=== PATIENT | male | born 1960 | race Caucasian/White ===

== ENCOUNTER 2018-11-24 11:30 | Emergency (ER) | payer OTHER ==
[2018-11-24 11:47] VITALS: BP 108/76
[2018-11-24] MEDS ORDERED: SODIUM CHLORIDE 0.9% 1,000 ML IV ONE ×2 (12:48→14:17)
[2018-11-24 13:12] LABS: BASOPHILS # (AUTO) 0.1 10^3/uL (0.0-0.1); BASOPHILS % (AUTO) 0.9 %; EOSINOPHILS # (AUTO) 0.3 10^3/uL (0.0-0.7); EOSINOPHILS % (AUTO) 3.4 %; HGB - HEMOGLOBIN 15.3 g/dL (14.0-18.0); LYMPHOCYTES # (AUTO) 3.6 10^3/uL (1.5-3.5); LYMPHOCYTES % (AUTO) 47.7 %; MEAN CORPUSCULAR HEMOGLOBIN 31.8 pg (27.0-31.0); MEAN CORPUSCULAR HGB CONC 36.7 g/dL (32.0-36.0); MEAN CORPUSCULAR VOLUME 86.7 fL (80.0-94.0); MEAN PLATELET VOLUME 9.9 fL (7.4-11.4); MONOCYTES # (AUTO) 0.4 10^3/uL (0.0-1.0); MONOCYTES % (AUTO) 5.2 %; NEUTROPHILS # (AUTO) 3.2 10^3/uL (1.5-6.6); NEUTROPHILS % (AUTO) 42.7 %; PLT - PLATELET COUNT 233 10^3/uL (130-450); RED BLOOD COUNT 4.81 10^6/uL (4.70-6.10); RED CELL DISTRIBUTION WIDTH 11.7 % (12.0-15.0); WHITE BLOOD COUNT 7.4 x10^3/uL (4.8-10.8)
[2018-11-24 13:13] LABS: VBG PH 7.416 (7.31-7.41)
[2018-11-24 13:14] LABS: VBG BASE EXCESS 0.8 mmol/L (-2 - +2); VBG PCO2 40.3 mmHg (41-51); VBG PO2 48.8 mmHg (25-47); VBG TOTAL CO2 26.6 mmol/L (24-29)
--- NOTE | 2018-11-24 13:14 | ED Physician Documentation ---
History of Present Illness - Stated complaint Stated Complaint: ELEVATED SUGAR - Chief complaint Chief Complaint: General - History obtained from History obtained from: Patient - History of Present Illness Timing: How many weeks ago (several) - Additonal information Additional information: The patient is a 58-year-old male who has had polyuria and polydipsia for the past 3 weeks or so. He was seen at the [facility] this morning and was noted to have high blood sugar. He was sent here for further evaluation and treatment. He does not have a history of diabetes. He denies abdominal pain, nausea or vomiting. He denies shortness of breath. He denies history of similar symptoms in the past. Review of Systems Constitutional: denies: Fever Eyes: denies: Irritation Nose: denies: Congestion Throat: denies: Sore throat Cardiac: denies: Chest pain / pressure Respiratory: denies: Dyspnea, Cough GI: denies: Abdominal Pain, Nausea, Vomiting : denies: Dysuria Skin: denies: Rash Musculoskeletal: denies: Back pain Neurologic: denies: Headache Endocrine: reports: Polydypsia, Polyuria PD PAST MEDICAL HISTORY - Past Medical History Cardiovascular: Hypertension Respiratory: None Endocrine/Autoimmune: None GI: GERD - Present Medications Home Medications: Ambulatory Orders Medication Instructions Recorded Confirmed Lisinopril/Hydrochlorothiazide 1 PO 11/24/18 [Lisinopril-Hctz 10-12.5 mg Tab] Omeprazole Magnesium [Prilosec] 10 mg PO 11/24/18 metFORMIN [Glucophage] 500 mg PO BIDWM #30 tablet 11/24/18 - Allergies Allergies/Adverse Reactions: Allergies Allergy/AdvReac Type Severity Reaction Status Date / Time No Known Drug Allergies Allergy Verified 11/24/18 11:47 - Social History Does the pt smoke?: No PD ED PE NORMAL - Vitals Vital signs reviewed: Yes (normal) - General General: Alert and oriented X 3, Well developed/nourished - HEENT HEENT: Atraumatic, Pharynx benign - Neck Neck: Supple, no meningeal sign, No adenopathy - Cardiac Cardiac: RRR - Respiratory Respiratory: No respiratory distress, Clear bilaterally - Abdomen Abdomen: Normal bowel sounds, Soft, Non tender - Back Back: No CVA TTP - Derm Derm: No rash - Extremities Extremities: No edema, No calf tenderness / cord - Neuro Neuro: Alert and oriented X 3, No motor deficit, Normal speech Results - Vitals Vitals: Vital Signs - 24 hr 11/24/18 15:50 Heart Rate 71 Respiratory 19 Rate O2 Saturation 99 Oxygen O2 Source Room air - Labs Labs: Laboratory Tests 11/24/18 11/24/18 11/24/18 11:46 13:01 13:01 WBC 7.4 RBC 4.81 Hgb 15.3 Hct 41.7 L MCV 86.7 MCH 31.8 H MCHC 36.7 H RDW 11.7 L Plt Count 233 MPV 9.9 Neut # (Auto) 3.2 Lymph # (Auto) 3.6 H Morrow # (Auto) 0.4 Eos # (Auto) 0.3 Baso # (Auto) 0.1 Absolute Nucleated RBC 0.00 Nucleated RBC % 0.0 VBG pH VBG pCO2 VBG pO2 VBG HCO3 VBG Total CO2 VBG O2 Saturation VBG Base Excess Sodium 132 L Potassium 4.3 Chloride 93 L Carbon Dioxide 27 Anion Gap 12.0 BUN 14 Creatinine 0.7 Estimated GFR (MDRD) 116 Glucose 400 H POC Whole Bld Glucose 448 H Glycated Hemoglobin Estim Average Glucose Calcium 9.5 Total Bilirubin 1.5 H AST 35 ALT 44 Alkaline Phosphatase 57 Total Protein 8.1 Albumin 4.7 Globulin 3.4 Albumin/Globulin Ratio 1.4 Lipase 39 Serum Ketones NEGATIVE 11/24/18 11/24/18 11/24/18 13:01 13:01 14:31 WBC RBC Hgb Hct MCV MCH MCHC RDW Plt Count MPV Neut # (Auto) Lymph # (Auto) Morrow # (Auto) Eos # (Auto) Baso # (Auto) Absolute Nucleated RBC Nucleated RBC % VBG pH 7.416 H VBG pCO2 40.3 L VBG pO2 48.8 H VBG HCO3 25.3 VBG Total CO2 26.6 VBG O2 Saturation 86.2 H VBG Base Excess 0.8 Sodium Potassium Chloride Carbon Dioxide Anion Gap BUN Creatinine Estimated GFR (MDRD) Glucose POC Whole Bld Glucose 310 H Glycated Hemoglobin 14.0 H Estim Average Glucose 355 H Calcium Total Bilirubin AST ALT Alkaline Phosphatase Total Protein Albumin Globulin Albumin/Globulin Ratio Lipase Serum Ketones 11/24/18 15:48 WBC RBC Hgb Hct MCV MCH MCHC RDW Plt Count MPV Neut # (Auto) Lymph # (Auto) Morrow # (Auto) Eos # (Auto) Baso # (Auto) Absolute Nucleated RBC Nucleated RBC % VBG pH VBG pCO2 VBG pO2 VBG HCO3 VBG Total CO2 VBG O2 Saturation VBG Base Excess Sodium Potassium Chloride Carbon Dioxide Anion Gap BUN Creatinine Estimated GFR (MDRD) Glucose POC Whole Bld Glucose 293 H Glycated Hemoglobin Estim Average Glucose Calcium Total Bilirubin AST ALT Alkaline Phosphatase Total Protein Albumin Globulin Albumin/Globulin Ratio Lipase Serum Ketones PD MEDICAL DECISION MAKING - ED course Complexity details: reviewed results, re-evaluated patient, considered differential, d/w patient ED course: The patient's presentation is significant for new onset diabetes, with an initial blood sugar of 448 and hemoglobin A1c of 14.0. His serum ketones are negative and serum bicarbonate is normal. Potassium is normal. Other than polyuria and polydipsia he is asymptomatic. Treatment in the emergency department included administration of normal saline 2 L IV, and regular insulin 6 units subcutaneously. Repeat fingerstick but sugars improved to 310 and then finally 293 prior to discharge. He is being discharged with a prescription for metformin. I discussed with him the diagnosis, the importance of outpatient follow-up and diabetic teaching, as well as potentially worrisome signs or symptoms that should prompt reevaluation in the emergency department. Departure - Departure Disposition: 01 Home, Self Care Clinical Impression: Diabetes mellitus, new onset Condition: Stable Instructions: ED Hyperglycemia New Susp Diabetes Follow-Up: AMEE MCKEON [Primary Care Provider] - Prescriptions: metFORMIN [Glucophage] 500 mg PO BIDWM #30 tablet Comments: Avoid excessive sugar. Take metformin twice daily as prescribed. Follow-up with your primary physician within 1 week. Call tomorrow to schedule follow-up appointment. Return to the emergency department if you develop vomiting, shortness of breath, abdominal pain, or otherwise worsening symptoms. Discharge Date/Time: 11/24/18 16:12
[2018-11-24 13:26] LABS: KETONES, SERUM (ACETEST) NEGATIVE (NEGATIVE)
[2018-11-24 13:29] LABS: ALBUMIN 4.7 g/dL (3.2-5.5); ALBUMIN/GLOBULIN RATIO 1.4 (1.0-2.2); ALKALINE PHOSPHATASE 57 IU/L (42-121); ALT ALANINE AMINOTRANSFERASE 44 IU/L (10-60); AST ASPARTATE AMINOTRANSFERASE 35 IU/L (10-42); BILIRUBIN,TOTAL 1.5 mg/dL (0.2-1.0); BUN - BLOOD UREA NITROGEN 14 mg/dL (6-20); CALCIUM 9.5 mg/dL (8.5-10.3); CARBON DIOXIDE - CO2 27 mmol/L (21-32); CHLORIDE 93 mmol/L (101-111); CREATININE 0.7 mg/dL (0.6-1.2); GFR - MDRD 116 (>89); GLUCOSE 400 mg/dL (70-100); LIPASE 39 U/L (22-51); SODIUM 132 mmol/L (135-145); TOTAL PROTEIN 8.1 g/dL (6.7-8.2)
[2018-11-24 13:42] LABS: HB2 TOTAL 15.5 g/dL; HEMOGLOBIN A1C 2.01 g/dL
[2018-11-24] MEDS ORDERED: INSULIN REGULAR HUMAN 100 UNIT/1 ML 10 ML MDV SUBQ STA (14:16)
== END 2018-11-24 16:12 | disposition home or self-care (01) ==
LOC: ED 11:30
DX: E11.9 Type 2 diabetes mellitus without complications (principal); I10 Essential (primary) hypertension
CPT/HCPCS: 36415; 80053; 82009; 82803; 83036; 83690; 85025; 96360; 96361; 99283; J1815

== ENCOUNTER 2019-01-12 10:03 | Outpatient (CLI) | payer OTHER ==
--- NOTE | 2019-01-12 17:38 | CARDIAC PROCEDURE NOTE ---
DATE OF SERVICE: 01/12/2019 Physician: Sandra Kamara MD, [facility] INDICATION: Chest pain, dyspnea. CARDIAC RISK FACTORS: Male gender, hypertension, diabetes, elevated cholesterol, smoker. DESCRIPTION OF PROCEDURE: After signing informed consent, patient underwent a Benson-protocol treadmill stress test. No imaging was ordered with this test. RESTING HEART RATE: 90. PEAK HEART RATE: 141 (87% predicted maximum heart rate for age). RESTING BLOOD PRESSURE: 148/82. PEAK BLOOD PRESSURE: 160/70. The patient exercised for 7 minutes and 39 seconds on a Benson-protocol treadmill stress test. He achieved a peak heart rate of 141, which is 87% predicted maximum heart rate for age, and achieved 9.6 METS. The patient had mild shortness of breath, but described his perceived exertion at 16/20 on a Gladys scale, and for this reason the exercise was stopped. He had no chest pain. Oxygen saturation was 98% pretest, and 97% at peak on room air. RESTING EKG: Normal sinus rhythm, right IVCD, early R/S transition. EKG AT PEAK: T-wave flattening inferolaterally. SUMMARY 1. Abnormal resting EKG. 2. Nonspecific EKG changes occur with exercise at a good level of stress. 3. Good exercise tolerance. 4. This patient's cardiac risk based on EKG changes: Low to moderate. 5. No imaging was ordered with this test, and may increase the specificity of results. TD: 01/12/2019 16:40 MTDJd
== END 2019-01-12 10:04 | disposition home or self-care (01) ==
LOC: DI 10:03
PROVIDERS: ATTEND Physician Assistant
DX: R07.89 Other chest pain (principal); R06.00 Dyspnea, unspecified; R94.31 Abnormal electrocardiogram [ECG] [EKG]
CPT/HCPCS: 93017

== ENCOUNTER 2021-08-01 07:03 | Outpatient (CLI) | payer OTHER ==
--- NOTE | 2021-08-01 12:35 | Ultrasound Report ---
PROCEDURE: Abdomen Limited INDICATIONS: FATTY LIVER TECHNIQUE: Real-time scanning was performed of the abdominal and retroperitoneal organs, with image documentatio n. COMPARISON: None. FINDINGS: Liver: Liver is enlarged with steatosis. Gallbladder: No stones are present. Wall is normal measuring 1.8 mm. Biliary ducts: Intrahepatic bile ducts are non-dilated. Extrahepatic bile duct caliber measures 4 m m. Normal is 6-7 mm or less in diameter, or 10 mm or less post-cholecystectomy. Pancreas: Visualized portions of the pancreas are sonographically normal. Kidneys: Right kidney measures 13.4 cm long. No hydronephrosis or nephrolithiasis. No solid masses . IMPRESSION: Hepatomegaly with steatosis. Reviewed by: Sarah Reza MD on 08/01/2021 11:34 AM [facility] Approved by: Sarah Reza MD on 08/01/2021 11:34 AM [facility] Station ID: [id number]
== END 2021-08-01 07:04 | disposition home or self-care (01) ==
LOC: DI 07:03
PROVIDERS: ATTEND Physician Assistant
DX: K76.0 Fatty (change of) liver, not elsewhere classified (principal)

== ENCOUNTER 2022-08-25 08:37 | Outpatient (CLI) | payer OTHER ==
--- NOTE | 2022-08-25 16:22 | Ultrasound Report ---
PROCEDURE: Abdomen Limited INDICATIONS: FATTY LIVER TECHNIQUE: Real-time focused scanning was performed of the abdomen, with image documentation. COMPARISONS: Abdomen ultrasound 08/01/2021 FINDINGS: Liver: Liver measures 17.8 cm with increased echogenicity. Liver previously measured 18.8 cm. Gallbladder: No stones. Wall thickness is normal measuring 0.3 mm. Biliary ducts: Intrahepatic bile ducts are non-dilated. Extrahepatic bile duct caliber measures 5 m m. Normal is 6-7 mm or less in diameter, or 10 mm or less post-cholecystectomy. Pancreas: Visualized portions of the pancreas are sonographically normal. Right kidney: Normal in size and echotexture. Right kidney measures 12.4 cm long. No hydronephrosis or nephrolithiasis. No solid masses. No complex renal cystic lesions which require follow-up. Aorta: Visualized aorta is normal in caliber at less than 3 cm. IVC: Intrahepatic inferior vena cava is patent. Miscellaneous: No free abdominal fluid. IMPRESSION: Persistent hepatomegaly although slightly less prominent. Hepatic steatosis remains present. Reviewed by: Sarah Reza MD on 08/25/2022 4:21 PM PDT Approved by: Sarah Reza MD on 08/25/2022 4:21 PM PDT Station ID: [id number]
== END 2022-08-25 08:38 | disposition home or self-care (01) ==
LOC: DI 08:37
PROVIDERS: ATTEND Internal Medicine
DX: K76.0 Fatty (change of) liver, not elsewhere classified (principal); R94.5 Abnormal results of liver function studies

== ENCOUNTER 2023-02-06 08:58 | Outpatient (CLI) | payer OTHER ==
--- NOTE | 2023-02-07 00:01 | Ultrasound Report ---
PROCEDURE: Abdomen Limited INDICATIONS: ABN LIVER ENZYMES TECHNIQUE: Real-time focused scanning was performed of the abdomen, with image documentation. COMPARISONS: 08/25/2022, 07/29/2021 FINDINGS: Liver: The liver demonstrates mildly enlarged size. The liver demonstrates moderately increased ech ogenicity, which limits ultrasound sensitivity for detection of masses. The main portal vein demonstr ates normal size and hepatopedal flow. Gallbladder: No gallstones or significant sludge can be seen. The gallbladder wall does not appear th ickened. There is no specific pericholecystic fluid. The sonographic Samuel's sign is negative. Biliary ducts: Intrahepatic bile ducts are non-dilated. Extrahepatic bile duct caliber measures 3 m m. Normal is 6-7 mm or less in diameter, or 10 mm or less post-cholecystectomy. Pancreas: Visualized portions of the pancreas are sonographically normal. Right kidney: Normal in size and echotexture. Right kidney measures 12 cm long. No hydronephrosis or nephrolithiasis. No solid masses. No complex renal cystic lesions which require follow-up. IVC: Intrahepatic inferior vena cava is patent. Miscellaneous: No free abdominal fluid. IMPRESSION: Mildly enlarged, fatty liver. The gallbladder demonstrates a normal sonographic appearance. No biliary dilatation is seen. Reviewed by: Lazaro Anna MD on 02/06/2023 11:00 PM [facility] Approved by: Lazaro Anna MD on 02/06/2023 11:00 PM [facility] Station ID: [id number]
== END 2023-02-06 08:59 | disposition home or self-care (01) ==
LOC: DI 08:58
PROVIDERS: ATTEND Internal Medicine
DX: K76.0 Fatty (change of) liver, not elsewhere classified (principal)